=== PATIENT | male | born 1995 | race Caucasian/White ===

== ENCOUNTER 2017-08-06 16:01 | Emergency (ER) | payer BC ==
[2017-08-06 16:08] VITALS: TEMP 98.2
--- NOTE | 2017-08-06 16:21 | EDPHY ---
H & P Stated Complaint: Discomfort in "prostate area", since Sunday. Time Seen by Provider: 08/06/17 16:20 HPI/ROS: HPI: This is a 21-year-old male presents with Chief Complaint: Discomfort in "prostate area", since Sunday. Location: Suprapubic Quality: Discomfort Duration: 2-3 days Signs and Symptoms: no fever, no nausea, no vomiting, no hematemesis, no blood in stool, no abdominal bloating, no diarrhea, no back pain, no urinary symptoms , no testicular/groin pain, no indigestion, no chest pain, no shortness of breath, no penile discharge Timing: Intermittent Severity: Mild Context: Patient presents with suprapubic discomfort since Sunday described as fullness, episodes occur 1-2 times per day. Denies burning with urination/ penile discharge/testicular groin pain. Who reports he had unprotected sexual intercourse approximately 3 weeks ago and with another partner 5 days ago. He has a history of STIs in the past; last 1 occurring approximately 2 years ago. He is concerned that he may have an STI this time. Patient denies any anal intercourse or any anal trauma. Modifying Factors: None Comment: ROS: see HPI Constitutional: No fever, no chills, no weight loss Eyes: No blurred vision Respiratory: No shortness of breath, no cough Cardiovascular: No chest pain, no palpitations Gastrointestinal: No nausea, no vomiting, no diarrhea, no hematemesis, no blood in stool Genitourinary: No dysuria, no blood in urine Extremities: No myalgias, no edema Neurologic: No weakness, no numbness Skin: No rashes, no petechiae Hematologic: No bruising, no bleeding MEDICAL/SURGICAL/SOCIAL HISTORY: Medical history: anxiety disorder, attention deficit hyperactivity disorder, asthma, STD's. Surgical history: surgery Left knee. Social history: Employed CONSTITUTIONAL: Extremely well-appearing young adult white male, awake and alert, no obvious distress HEENT: Atraumatic and normocephalic, PERRL, EOMI. Tympanic membranes clear. Oropharynx clear, no exudate and moist pink mucosa. Airway patent. No lymphadenopathy. No meningismus. Cardiovascular: Normal S1/S2, regular rate, regular rhythm, without murmur rub or gallop. PULMONARY/CHEST: Symmetrical and nontender. Clear to auscultation bilaterally. Good air movement. No accessory muscle usage. ABDOMEN: Soft, nondistended, nontender, no rebound, no guarding, no peritoneal signs, no masses or organomegaly. No CVAT. : Circumcised penis, both testicles are descended and no tenderness, negative Prehn sign, no penile discharge, no lesions present, no inguinal mass/ hernia appreciated. RECTAL: Patient refused EXTREMITIES: 2/2 pulses, no deformities, no clubbing, no cyanosis or edema. NEUROLOGICAL: no focal neuro deficits. GCS 15. SKIN: Warm and dry, no erythema. no rash. Good capillary refill. Source: Patient Exam Limitations: No limitations - Personal History Current Tetanus Diphtheria and Acellular Pertussis (TDAP): Yes Tetanus Vaccine Date: <10 years - Medical/Surgical History Hx Asthma: Yes Hx Chronic Respiratory Disease: No Hx Diabetes: No Hx Cardiac Disease: No Hx Renal Disease: No Hx Cirrhosis: No Hx Alcoholism: No Hx HIV/AIDS: No Hx Splenectomy or Spleen Trauma: No Other PMH: medical anxiety disorder, asthma. surgery L knee. STD's. - Social History Smoking Status: Current every day smoker Constitutional: Initial Vital Signs Temperature (C) 36.8 C 08/06/17 16:04 Heart Rate 89 08/06/17 16:04 Respiratory Rate 18 08/06/17 16:04 Blood Pressure 148/110 H 08/06/17 16:04 O2 Sat (%) 99 08/06/17 16:04 O2 Delivery Mode Room Air Allergies/Adverse Reactions: No Known Allergies Allergy (Verified 07/30/16 10:21) Home Medications: Medication Instructions Recorded CLONAZEPAM 03/08/14 Adderall 10 MG (*) 07/30/16 Advair 100/50 (*) 07/30/16 Albuterol 5 mg/ml INH 07/30/16 Penicillin V Potassium [Penicillin 500 mg PO TID #21 tablet 07/30/16 VK] Medical Decision Making ED Course/Re-evaluation: Urinalysis, gonorrhea and chlamydia ordered No signs of testicular torsion/pyrexia/UTI Urinalysis is completely unremarkable Patient given IM ceftriaxone and 1 g of azithromycin Differential Diagnosis: Testicular pain including but not limited to epididymitis, orchitis, referred pain from kidney stone, inguinal hernia, and torsion of the testicle. - Data Points Laboratory Results: 08/06/17 08/06/17 16:00 16:00 Urine Color YELLOW Urine Appearance CLEAR Urine pH 6.0 (5.0-7.5) Ur Specific [place] 1.013 (1.002-1.030) Urine Protein NEGATIVE (NEGATIVE) Urine Ketones NEGATIVE (NEGATIVE) Urine Blood NEGATIVE (NEGATIVE) Urine Nitrate NEGATIVE (NEGATIVE) Urine Bilirubin NEGATIVE (NEGATIVE) Urine Urobilinogen NEGATIVE EU EU (0.2-1.0) Ur Leukocyte Esterase NEGATIVE (NEGATIVE) Urine Glucose NEGATIVE (NEGATIVE) C.trachomatis RNA (TMA) Pending N.gonorrhoeae RNA (TMA) Pending Departure - Departure Disposition: Home, Routine, Self-Care Clinical Impression: Concern about STD in male without diagnosis Condition: Good Instructions: Sexually Transmitted Diseases (ED), Safe Sex Practices for Adolescents (ED) Additional Instructions: Today you were treated for gonorrhea and chlamydia. Please call the emergency room tomorrow for the results of your tests. Please practice safe sex practices and abstain from sexual intercourse x 1 week and until all partners are treated. Referrals: [facility],. [Clinic] - As per Instructions
[2017-08-06 16:51] LABS: COLOR YELLOW; LEUKOCYTE ESTERASE,URINE NEGATIVE (NEGATIVE); NITRITE,URINE NEGATIVE (NEGATIVE)
[2017-08-06] MEDS ORDERED: CEFTRIAXONE IM 350 MG/ML SYRINGE IM ONE (17:21)
[2017-08-06] MEDS ORDERED: AZITHROMYCIN 250 MG TAB PO ONE (17:21)
[2017-08-06 18:01] VITALS: BP 149/64; PULSE 77; RESP 16; O2SAT 98
[2017-08-07 12:42] LABS: CHLAMYDIA AMPLIFICATION GENPRB NEGATIVE (NEGATIVE)
== END 2017-08-06 18:08 | disposition home or self-care (01) ==
DX: Z20.2 Contact with and (suspected) exposure to infections with a predominantly sexual mode of transmission (principal); J45.909 Unspecified asthma, uncomplicated; F17.200 Nicotine dependence, unspecified, uncomplicated
CPT/HCPCS: J0696

== ENCOUNTER 2019-03-20 07:28 | Emergency (ER) | payer BC | END 2019-03-20 08:22 | disposition home or self-care (01) ==